=== PATIENT | male | born 1975 | race Caucasian/White ===

== ENCOUNTER → 2017-12-15 | Outpatient (CLI) | payer OTHER ==
[~2017-12-15] MED LIST: DESYREL12.5 MG PO; DURAGESIC25 MCG TD; LYRICA150 MG PO; MELOXICAM15 MG PO; MOBIC15 MG PO; NAPROSYN500 MG PO; NEURONTIN300 MG PO; OMEPRAZOLE40 M1 PO; OXYCODONE HCL10 MG PO; OXYCODONE HCL15 MG PO; OXYCONTIN20 MG PO; PAXIL10 MG PO; PERCOCET 10/1 TABLET PO; PREDNISONE50 MG PO; TRAZAMINE CONVE50 MG PO; VALIUM5 MG PO; ZOFRAN ODT4 MG PO; ZOFRAN ODT8 MG PO
== END | disposition home or self-care (01) ==
LOC: RAD 12:59
DX: Z98.1 Arthrodesis status (principal)
CPT/HCPCS: 72131